=== PATIENT | male | born 1995 | race African-American/Black ===

== ENCOUNTER 2017-09-10 18:43 | Emergency (ER) | payer OTHER, SELFPAY ==
[2017-09-10 19:16] LABS: Bilirubin Small (Negative); Blood, Urine Negative (Negative); Glucose, Urine (Dipstick) Negative (Negative); Ketone, Urine Negative (Negative); Nitrite Negative (Negative); Protein, Urine (Dipstick) Trace mg/dL (Neg-Trace)
[2017-09-10 19:17] LABS: Bacteria/HPF None Seen HPF (None Seen); Hyaline Casts/LPF 4-6 HYALINE CAST LPF (0-3 Hyaline); Squamous Epithelial 0-3 HPF (0-3)
[2017-09-10] MEDS ORDERED: Ciprofloxacin 500 MG TAB ONE (20:42)
== END 2017-09-10 20:46 | disposition home or self-care (01) ==
LOC: ERS 18:43
DX: N39.0 Urinary tract infection, site not specified (principal); F17.210 Nicotine dependence, cigarettes, uncomplicated
CPT/HCPCS: 81003; 81015; 87086; 87491; 87591; 99406

== ENCOUNTER 2017-09-14 23:42 | Emergency (ER) | payer OTHER, SELFPAY ==
[2017-09-15 01:09] LABS: #Basophils 0.1 thou/uL (0.0-0.2); #Eosinphils 0.2 thou/uL (0.0-0.7); #Lymphocytes 3.6 thou/uL (1.20-3.40); #Monocytes 0.5 thou/uL (0.11-0.59); %Basophils 1.7 % (0.0-1.0); %Eosinophils 2.6 % (0.0-10.0); %Lymphocytes 48.6 % (21.0-51.0); Hematocrit 45.6 % (42.0-52.0); Red Blood Cell (RBC) Count 4.68 mill/uL (4.70-6.10); White Blood Cell (WBC) Count 7.5 thou/uL (4.8-10.8)
[2017-09-15 01:21] LABS: Amphetamine Not Detected (NotDetected); Methadone Not Detected (NotDetected); Methamphetamine Detected (NotDetected)
[2017-09-15 01:24] LABS: ALT (SGPT) 12 U/L (8-55); AST (SGOT) 15 U/L (5-34); Alkaline Phosphatase 73 U/L (40-150); Anion Gap 10 mmol/L (10-20); BUN (Urea Nitrogen) 16 mg/dL (8.9-20.6); Bilirubin, Total 0.3 mg/dL (0.2-1.2); CK (CPK) 110 U/L (30-200); Calc. Creatinine Clearance 0 mL/min (70-130); Calcium 9.2 mg/dL (7.8-10.44); Carbon Dioxide 25 mmol/L (22-29); Chloride 106 mmol/L (98-107); Estimated GFR-MDRD Greater than 90; Globulin 3.2 g/dL (2.4-3.5); Lipase 17 U/L (8-78); Magnesium 2.3 mg/dL (1.6-2.6); Protein, Total 7.2 g/dL (6.0-8.3)
[2017-09-15 01:58] LABS: Troponin I 0.012 ng/mL (< 0.028)
--- NOTE | 2017-09-15 06:49 | RAD ---
PA AND LATERAL OF THE CHEST: INDICATION: Chest pain. COMPARISON: None. IMPRESSION: No acute cardiopulmonary abnormality demonstrated. COMMENTS: The lungs are clear. Cardiomediastinal silhouette is normal. No acute osseous abnormality is evide nt. POS: [facility]
--- NOTE | 2017-09-15 07:06 | CT ---
CT OF THE BRAIN WITHOUT CONTRAST: INDICATION: Left upper extremity weakness with eyes felt like they were crossing. The patient is having h eadache. COMPARISON: None. FINDINGS: No acute infarct, hemorrhage, or hydrocephalus is present. Septum pellucidum and third ventricle ar e midline. The mastoid air cells and paranasal sinuses are clear. The skull is intact. IMPRESSION: No acute intracranial abnormality. POS: [facility]
--- NOTE | 2017-09-15 07:11 | CT ---
CTA OF THE CHEST AND ABDOMEN UTILIZING IV CONTRAST AND 3D REFORMATTED IMAGING: HISTORY; Cocaine abuse with hypertension and chest pain. FINDINGS: No aortic dissection, occlusion, or aneurysmal formation is evident. Celiac, SMA, renal, and SHELBY ar varinder appear within normal limits. There is a horseshoe kidney. The lungs are clear. No pneumothor ax is evident. No pleural effusion is noted. Liver, spleen, pancreas, and adrenal glands appear wi thin normal limits. No free fluid is evident. There are bilateral pars defects at L5. No acute os seous abnormality is evident. IMPRESSION: No aortic dissection, occlusion, or aneurysmal formation demonstrated. POS: [facility]
[2017-09-15] MEDS ORDERED: ISOVUE-370 76%-LOCM 1 ML ONE (15:58)
--- NOTE | 2017-09-18 20:11 | EKG ---
Test Reason : CP Blood Pressure : / mmHG Vent. Rate : 083 BPM Atrial Rate : 083 BPM P-R Int : 128 ms QRS Dur : 078 ms QT Int : 374 ms P-R-T Axes : 025 065 046 degrees QTc Int : 439 ms Normal sinus rhythm Normal ECG Confirmed by MENDY WHITTAKER D.O. ([id number]), brands editor LUCIO JUNIOR ([id number] on 09/18/2017 8:11:38 PM Referred By: DARRELL Confirmed By:MENDY WHITTAKER D.O.
== END 2017-09-15 02:52 | disposition home or self-care (01) ==
LOC: ERS 23:42
DX: R07.2 Precordial pain (principal); F19.10 Other psychoactive substance abuse, uncomplicated; F17.210 Nicotine dependence, cigarettes, uncomplicated
CPT/HCPCS: 36415; 70450; 71020; 71275; 80053; 80306; 82553; 83690; 83735; 84443; 84484; 85025; 85379; 93005; 99406

== ENCOUNTER 2018-08-21 10:46 | Emergency (ER) | payer OTHER, SELFPAY ==
--- NOTE | 2018-08-21 11:20 | RAD ---
CHEST 2 VIEWS: HISTORY: Cold-like symptoms. Cough. COMPARISON: Chest radiograph 09/15/2017. FINDINGS: Lungs are clear. No pneumothorax or effusion. Cardiac silhouette and mediastinal contours are withi n normal limits. IMPRESSION: No acute intrathoracic abnormality. POS: [facility]
== END 2018-08-21 12:27 | disposition home or self-care (01) ==
LOC: ERS 10:46
DX: R07.89 Other chest pain (principal); F41.9 Anxiety disorder, unspecified; F31.9 Bipolar disorder, unspecified; F25.9 Schizoaffective disorder, unspecified; F17.210 Nicotine dependence, cigarettes, uncomplicated
CPT/HCPCS: 71046; 93005